=== PATIENT | male | born 1960 | race Caucasian/White ===

== ENCOUNTER 2020-06-30 15:12 | Emergency (ER) | payer OTHER ==
[~2020-06-30] VITALS: Ht 175.3 cm; Wt 97.7 kg
[2020-06-30] MEDS ORDERED: SYNT100T PO (15:25)
--- NOTE | 2020-06-30 16:39 | REP ---
INDICATION: trauma. COMPARISON: None. TECHNIQUE: Axial noncontrast images of the thoracic spine with coronal and sagittal reformations. FINDINGS: Thoracic vertebral bodies are intact and without acute fracture/compression injury or subluxation. Alignment and kyphosis maintained. Multilevel degenerative changes include endplate sclerosis, osteophytosis, and minimal disc space narrowing. Paravertebral soft tissues appear normal. IMPRESSION: Age-related multilevel degenerative changes. No evidence for acute trauma/injury. <Electronically signed by Wander Teixeira > 06/30/20 [id number]
--- NOTE | 2020-06-30 16:40 | REP ---
INDICATION: trauma. COMPARISON: None. TECHNIQUE: Axial noncontrast images of the lumbosacral spine from mid T12 through mid sacrum with coronal and sagittal reformations. This CT examination was performed using the following dose reduction techniques: Automated exposure control, adjustment of mA and/or kv according to the patient's size, and use of iterative reconstruction technique. FINDINGS: Alignment and lordosis maintained. Vertebral bodies are intact. There is no evidence for acute fracture/compression injury or subluxation. The spinal canal is patent. Moderate multilevel degenerative changes include endplate sclerosis, osteophytosis, disc space narrowing and facet hypertrophy. Parrot vertebral soft tissues are within normal limits. IMPRESSION: Moderate multilevel degenerative spondylosis. No evidence for acute fracture/compression injury or subluxation. <Electronically signed by Wander Teixeira > 06/30/20 [id number]
--- NOTE | 2020-06-30 16:44 | REP ---
INDICATION: trauma COMPARISON: None. TECHNIQUE: AP, lateral, bilateral oblique views right wrist. FINDINGS: Lateral view demonstrates a small posterior corner fracture possibly arising from the lunate. Overlying soft tissue swelling noted. IMPRESSION: Small fracture fragment identified on lateral radiograph along the posterior proximal carpal row possibly from the lunate bone. <Electronically signed by Wander Teixeira > 06/30/20 [id number]
--- NOTE | 2020-06-30 16:45 | REP ---
INDICATION: trauma COMPARISON: None. TECHNIQUE: AP, lateral, bilateral oblique and sunrise views right knee. FINDINGS: Nonspecific age-related changes are appreciated. There is no evidence for acute fracture or dislocation. No definite effusion. IMPRESSION: Relatively age-appropriate examination. No acute fracture or dislocation. <Electronically signed by Wander Teixeira > 06/30/20 [id number]
[2020-06-30 18:01] VITALS: BP 136/89
[2020-07-01] MEDS ORDERED: IBUP-1114 PO (12:15)
== END 2020-06-30 18:09 | disposition home or self-care (01) ==
LOC: M ED 15:12
DX: S63.391A Traumatic rupture of other ligament of right wrist, initial encounter (principal); S62.124A Nondisplaced fracture of lunate [semilunar], right wrist, initial encounter for closed fracture; S50.812A Abrasion of left forearm, initial encounter; T14.8XXA Other injury of unspecified body region, initial encounter; M79.18 Myalgia, other site; V09.20XA Pedestrian injured in traffic accident involving unspecified motor vehicles, initial encounter; Y92.410 Unspecified street and highway as the place of occurrence of the external cause; Y93.9 Activity, unspecified; Y99.9 Unspecified external cause status; M47.816 Spondylosis without myelopathy or radiculopathy, lumbar region; M51.34 Other intervertebral disc degeneration, thoracic region

== ENCOUNTER 2020-07-01 12:08 | Emergency (ER) | payer OTHER ==
[~2020-07-01] VITALS: Ht 175.3 cm; Wt 97.7 kg
[~2020-07-01 12:08] MED LIST: SYNT100T PO
[2020-07-01] MEDS ORDERED: IBUP-1114 PO (12:15)
--- NOTE | 2020-07-01 12:40 | REP ---
INDICATION: trauma COMPARISON: None TECHNIQUE: AP, lateral, bilateral oblique views left wrist. FINDINGS: The carpal bones, surrounding osseous structures, soft tissues, and joint spaces are normal. There is no evidence for acute fracture or dislocation. No subcutaneous emphysema or radiodense foreign body. IMPRESSION: Normal wrist series. No acute fracture or dislocation. <Electronically signed by Wander Teixeira > 07/01/20 [id number]
[2020-07-01 13:26] VITALS: BP 151/68
== END 2020-07-01 14:29 | disposition home or self-care (01) ==
LOC: M ED 12:08
DX: S63.92XA Sprain of unspecified part of left wrist and hand, initial encounter (principal); V03.10XA Pedestrian on foot injured in collision with car, pick-up truck or van in traffic accident, initial encounter; Y92.410 Unspecified street and highway as the place of occurrence of the external cause; Y93.89 Activity, other specified; Y99.8 Other external cause status; Z79.890 Hormone replacement therapy